=== PATIENT | male | born 1975 | race Caucasian/White ===

== ENCOUNTER 2022-06-17 17:38 | Emergency (ER) | payer SELFPAY ==
[~2022-06-17] VITALS: Ht 160 cm; Wt 56.2 kg
[2022-06-17 17:43] VITALS: BP 131/58
[2022-06-17] MEDS ORDERED: LIDOCAINE MPF 1% 10 MG/ML VIAL INJ ONE ×3 (18:05→19:35)
[2022-06-17] MEDS ORDERED: HYDROcodone/APAP 5/325 MG 1 TAB TAB PO ONE (18:05)
[2022-06-17] MEDS ORDERED: BACITRACIN OINT 500 UNITS/GM PKT TP ONE ×3 (18:05→19:25)
[2022-06-17] MEDS ORDERED: HYDROcodone/APAP 5/325 MG 1 TAB TAB ONE (18:12)
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
--- NOTE | 2022-06-17 18:22 | NUR ---
XRAY AT BEDSIDE
[2022-06-17] MEDS ORDERED: LIDOCAINE MPF 1% 5 ML ONE (18:23)
--- NOTE | 2022-06-17 18:32 | NUR ---
PT'S LEFT FOREARM IRRIGATED AND CLEANED WITH NORMAL SALINE
--- NOTE | 2022-06-17 18:35 | NUR ---
AROLDO CAMPUZANO AT BEDSIDE FOR SUTURE REPAIR
--- NOTE | 2022-06-17 19:15 | NUR ---
REPORT GIVEN TO LENORE DE LOS SANTOS. ALL QUESTIONS ANSWERED. TRANSFER OF CARE AT THIS TIME
--- NOTE | 2022-06-17 19:23 | NUR ---
PT'S WOUND CLEANED AND IRRIGATED WITH NORMAL SALINE AND DRESSED WITH NON-ADHERENT GAUZE PADS AND WRAPPED WITH BULKY DRESSING AND KOFLEX TAPE. PT TOLERATED DRESSING WELL. PA AND RN NOTIFIED.
--- NOTE | 2022-06-17 19:24 | NUR ---
AROLDO CAMPUZANO explained results and treatment plans.
[2022-06-17] MEDS ORDERED: LIDOCAINE/EPI 1% 1:100000 20 ML VIAL INJ ONE (19:25)
--- NOTE | 2022-06-17 19:25 | NUR ---
pt is awake and alert, sitting up in bed. all needs met at this time.
[2022-06-17] MEDS ORDERED: BACI1PAC6 TP (19:29)
[2022-06-17] MEDS ORDERED: ACET-8386 PO (19:29)
[2022-06-17] MEDS ORDERED: IBUP-2213 PO (19:29)
[2022-06-17] MEDS ORDERED: CEPH-588 PO (19:29)
[2022-06-17 19:36] VITALS: BP 131/58
--- NOTE | 2022-06-17 19:36 | NUR ---
Patient discharged with v/s stable. Written and verbal after care instructions given and explained. Patient alert, oriented and verbalized understanding of instructions. Ambulatory with steady gait. All questions addressed prior to discharge. ID band removed. Patient advised to follow up with PMD. Rx of keflex, ibuprofen, bacitracin and hyrdocodone/acetaminophen given. Patient educated on indication of medication including possible reaction and side effects. Opportunity to ask questions provided and answered.
== END 2022-06-17 19:36 | disposition home or self-care (01) ==
LOC: MED 17:38
DX: S61.412A Laceration without foreign body of left hand, initial encounter (principal); Z79.899 Other long term (current) drug therapy; W45.8XXA Other foreign body or object entering through skin, initial encounter; Y93.89 Activity, other specified; Y92.89 Other specified places as the place of occurrence of the external cause; Y99.8 Other external cause status
CPT/HCPCS: 12005; 73090; 73130; 99284; J2001